=== PATIENT | male | born 1975 | race Caucasian/White ===

== ENCOUNTER 2022-07-05 09:59 | Inpatient (IN) | payer BC ==
[2022-07-05] MEDS ORDERED: Fentanyl 100 MCG/2 ML VIAL ONE (10:08)
[2022-07-05] MEDS ORDERED: Heparin 5,000 UNITS/ML VIAL ONE (10:19)
[2022-07-05] MEDS ORDERED: Protamine Sulfate 50 MG/5 ML VIAL ONE (10:19)
[2022-07-05] MEDS ORDERED: Albumin 5% 500 ML ONE (10:26)
[2022-07-05] MEDS ORDERED: fentaNYL Citrate/PF 100 MCG/2 ML SYRINGE ONE (10:27)
[2022-07-05 10:34] LABS: #Basophils 0.1 thou/uL (0.0-0.2); #Eosinphils 0.2 thou/uL (0.0-0.7); #Lymphocytes 2.9 thou/uL (1.20-3.40); #Monocytes 0.7 thou/uL (0.11-0.59); #Neutrophils 6.6 thou/uL (1.40-6.50); %Basophils 0.6 % (0.0-1.0); %Eosinophils 2.2 % (0.0-10.0); %Lymphocytes 27.5 % (21.0-51.0); %Monocytes 6.6 % (0.0-10.0); %Neutrophils 62.9 % (42.0-75.0); Hemoglobin 16.6 g/dL (14.0-18.0); Mean Corpuscular Hemoglobin 30.5 pg (27.0-31.0); Mean Corpuscular Volume 89.6 fL (78.0-98.0); Mean Platelet Volume 9.1 fL (7.4-10.4); Platelet Count 192 thou/uL (130-400); RBC Distribution Width 13.1 % (11.5-14.5); Red Blood Cell (RBC) Count 5.44 mill/uL (4.70-6.10); White Blood Cell (WBC) Count 10.4 thou/uL (4.8-10.8)
[2022-07-05] MEDS ORDERED: Glycopyrrolate 0.2 MG/ML 5 ML SYRINGE ONE (10:38)
[2022-07-05] MEDS ORDERED: Ondansetron PF 4 MG/2 ML Vial ONE (10:38)
[2022-07-05] MEDS ORDERED: Phenylephrine 10 MG/ML VIAL ONE (10:38)
[2022-07-05] MEDS ORDERED: Succinylcholine 200 MG/10 ml SYRINGE FS ONE (10:38)
[2022-07-05] MEDS ORDERED: ePHEDrine 50 MG/ML VIAL ONE (10:38)
[2022-07-05] MEDS ORDERED: NEOSTIGMINE 3 MG/3 ML SYR 3 MG/3 ML SYRINGE ONE (10:38)
[2022-07-05] MEDS ORDERED: Ketorolac Tromethamine 30 MG/ML VIAL ONE (10:38)
[2022-07-05] MEDS ORDERED: Dexamethasone 20 MG/5 ML VIAL ONE (10:38)
[2022-07-05] MEDS ORDERED: Rocuronium Bromide 10 MG/ML (10ML VIAL) ONE (10:38)
[2022-07-05 10:54] LABS: ALT (SGPT) 35 U/L (8-55); AST (SGOT) 22 U/L (5-34); Albumin 3.8 g/dL (3.5-5.0); Alkaline Phosphatase 61 U/L (40-110); Anion Gap 15 mmol/L (10-20); BUN (Urea Nitrogen) 16 mg/dL (8.9-20.6); Bilirubin, Total 0.7 mg/dL (0.2-1.2); Calc. Creatinine Clearance 0 mL/min (70-130); Calcium 8.6 mg/dL (7.8-10.44); Carbon Dioxide 19 mmol/L (22-29); Chloride 113 mmol/L (98-107); Estimated GFR 76; Globulin 2.8 g/dL (2.4-3.5); Glucose 171 mg/dL (70-105); Potassium 4.5 mmol/L (3.5-5.1); Protein, Total 6.6 g/dL (6.0-8.3); Sodium 142 mmol/L (136-145)
[2022-07-05] MEDS ORDERED: Bupivacaine PF 0.5% 30 ML VIAL ONE (12:26)
[2022-07-05] MEDS ORDERED: Bacitracin Zinc Ointment 30 gm TUBE ONE (12:26)
[2022-07-05] MEDS ORDERED: Ondansetron ODT 4 MG TAB PO PRN (14:40)
[2022-07-05] MEDS ORDERED: Ondansetron PF 4 MG/2 ML Vial IVP PRN (14:40)
[2022-07-05] MEDS ORDERED: hydrALAZINE 20 MG/ML VIAL SLOW IVP PRN (14:40)
[2022-07-05] MEDS ORDERED: Morphine 4 MG/ML VIAL SLOW IVP PRN (14:40)
[2022-07-05] MEDS ORDERED: Promethazine HCl 25 MG/ML VIAL IM PRN (14:40)
[2022-07-05] MEDS ORDERED: Dextrose 50% Abboject 50 ML SYRINGE SLOW IVP PRN (14:40)
[2022-07-05] MEDS ORDERED: Dextrose 5% in Water 1,000 ML IV PRN (14:40)
[2022-07-05] MEDS ORDERED: Cyclobenzaprine 10 MG TAB PO PRN (14:43)
[2022-07-05] MEDS ORDERED: traMADol HCl 50 MG TAB PO PRN (14:43)
[2022-07-05] MEDS ORDERED: TETANUS AND DIPHTHERIA TOX/PF 0.5 ML DISP.SYRIN IM ONE (15:25)
[2022-07-05] MEDS ORDERED: Boostrix 0.5 ML (Tdap) VIAL (>/=7 yrs of age) IM ONE (17:15)
[2022-07-05] MEDS: Acetaminophen 500 MG TAB PO SCH ×2 (17:47→23:21)
[2022-07-05] MEDS: traMADol HCl 50 MG TAB PO SCH ×2 (17:48→23:22)
[2022-07-05] MEDS: Ibuprofen 800 MG TAB PO PRN ×2 (17:48→17:54)
[2022-07-05] MEDS: CEFAZOLIN 2 GM in Sodium Chloride 0.9% 100 ML IVPB SCH ×2 (17:49→23:17)
[2022-07-05 18:06] VITALS: BMI 31.4
[2022-07-05] MEDS: Cepastat Lozenges 1 LOZ PO PRN ×2 (18:41→23:29)
[2022-07-05] MEDS: Famotidine 20 MG TAB PO SCH (20:25)
[2022-07-05] MEDS: Gabapentin 100 MG CAP PO SCH (20:25)
[2022-07-05] MEDS: Morphine 2 MG/ML VIAL SLOW IVP PRN (20:33)
[2022-07-06] MEDS: Morphine 2 MG/ML VIAL SLOW IVP PRN ×2 (00:19→03:24)
[2022-07-06] MEDS: Cepastat Lozenges 1 LOZ PO PRN ×2 (03:14→11:46)
[2022-07-06] MEDS: Gabapentin 100 MG CAP PO SCH ×2 (05:19→13:53)
[2022-07-06] MEDS: Acetaminophen 500 MG TAB PO SCH ×2 (05:19→11:25)
[2022-07-06] MEDS: traMADol HCl 50 MG TAB PO SCH ×2 (05:20→11:26)
[2022-07-06 05:49] LABS: #Lymphocytes 1.5 thou/uL (1.20-3.40); #Monocytes 1.1 thou/uL (0.11-0.59); #Neutrophils 15.5 thou/uL (1.40-6.50); %Basophils 0.1 % (0.0-1.0); %Eosinophils 0.1 % (0.0-10.0); %Lymphocytes 8.2 % (21.0-51.0); %Monocytes 5.8 % (0.0-10.0); %Neutrophils 85.8 % (42.0-75.0); Hemoglobin 12.5 g/dL (14.0-18.0); Mean Corpuscular HGB CONC 33.1 g/dL (32.0-36.0); Mean Corpuscular Hemoglobin 30.2 pg (27.0-31.0); Mean Corpuscular Volume 91.3 fL (78.0-98.0); Mean Platelet Volume 9.1 fL (7.4-10.4); Platelet Count 164 thou/uL (130-400); RBC Distribution Width 12.9 % (11.5-14.5); Red Blood Cell (RBC) Count 4.16 mill/uL (4.70-6.10); White Blood Cell (WBC) Count 18.1 thou/uL (4.8-10.8)
[2022-07-06 06:13] LABS: Calcium 8.2 mg/dL (7.8-10.44); Chloride 111 mmol/L (98-107); Glucose 148 mg/dL (70-105); Potassium 4.6 mmol/L (3.5-5.1); Sodium 141 mmol/L (136-145)
[2022-07-06 06:23] LABS: BUN (Urea Nitrogen) 17 mg/dL (8.9-20.6); Calc. Creatinine Clearance 117 mL/min (70-130); Carbon Dioxide 20 mmol/L (22-29); Estimated GFR 82; Magnesium 1.8 mg/dL (1.6-2.6); Phosphorus 2.7 mg/dL (2.3-4.7)
[2022-07-06 06:36] LABS: Anion Gap 15 mmol/L (10-20)
[2022-07-06] MEDS: Famotidine 20 MG TAB PO SCH (08:23)
[2022-07-06] MEDS: CEFAZOLIN 2 GM in Sodium Chloride 0.9% 100 ML IVPB SCH (08:24)
[2022-07-06] MEDS ORDERED: Sodium Chloride 0.9% 1,000 ML IV SCH (09:15)
[2022-07-06 12:27] VITALS: BP 134/78; TEMP 99.3
[2022-07-06] MEDS: Ibuprofen 800 MG TAB PO PRN (13:56)
== END 2022-07-06 14:33 | disposition home or self-care (01) | DRG 41 ==
LOC: ERS 09:59 → SURG B 16:00
PROVIDERS: ADMIT Surgery; ATTEND Surgery
PROC: 01Q40ZZ Repair Ulnar Nerve, Open Approach (ICD-10-PCS; principal; 2022-07-05)
PROC: 0KB90ZZ Excision of Right Lower Arm and Wrist Muscle, Open Approach (ICD-10-PCS; 2022-07-05)
PROC: 0LQ70ZZ Repair Right Hand Tendon, Open Approach (ICD-10-PCS; 2022-07-05)
PROC: 0X3 Anatomical Regions, Upper Extremities, Control (ICD-10-PCS; 2022-07-05)
DX: S64.01XA Injury of ulnar nerve at wrist and hand level of right arm, initial encounter (principal); S65.011A Laceration of ulnar artery at wrist and hand level of right arm, initial encounter; S65.111A Laceration of radial artery at wrist and hand level of right arm, initial encounter; W25.XXXA Contact with sharp glass, initial encounter; E78.00 Pure hypercholesterolemia, unspecified; Z79.899 Other long term (current) drug therapy; Z90.49 Acquired absence of other specified parts of digestive tract; Z98.890 Other specified postprocedural states
CPT/HCPCS: 36415; 71045; 80048; 80053; 83735; 84100; 85025; 86850; 86900; 86901; 90715; 96374; C9352; G0390; J0690; J1100; J1644; J1885; J2270; J2370; J2405; J2720; J3010; J3475; J3490; J7050; P9045; S0020